=== PATIENT | male | born 1955 | race Caucasian/White ===

== ENCOUNTER 2018-03-08 09:06 | Emergency (ER) | payer OTHER | END 2018-03-08 10:02 | disposition home or self-care (01) | LOC: SCSER 09:06 | DX: S01.511A Laceration without foreign body of lip, initial encounter (principal); W22.8XXA Striking against or struck by other objects, initial encounter | CPT/HCPCS: 12011 ==

== ENCOUNTER 2018-04-24 14:52 | Emergency (ER) | payer OTHER | END 2018-04-24 15:18 | disposition home or self-care (01) | LOC: SCSER 14:52 | DX: L03.113 Cellulitis of right upper limb (principal) | CPT/HCPCS: 99283 ==

== ENCOUNTER 2019-05-07 19:29 | Emergency (ER) | payer OTHER ==
[~2019-05-07 19:29] MED LIST: ISOVUE-370 76%-LOCM 1 ML ONE
[2019-05-07 20:23] LABS: #Basophils 0.1 thou/uL (0.0-0.2); #Eosinphils 0.2 thou/uL (0.0-0.7); #Lymphocytes 1.6 thou/uL (1.20-3.40); #Monocytes 0.9 thou/uL (0.11-0.59); #Neutrophils 5.6 thou/uL (1.40-6.50); %Basophils 1.1 % (0.0-1.0); %Eosinophils 2.9 % (0.0-10.0); %Monocytes 10.4 % (0.0-10.0); %Neutrophils 66.5 % (42.0-75.0); Hemoglobin 13.9 g/dL (14.0-18.0); Mean Corpuscular HGB CONC 32.1 g/dL (32.0-36.0); Mean Corpuscular Hemoglobin 26.7 pg (27.0-31.0); Mean Corpuscular Volume 83.2 fL (78.0-98.0); Mean Platelet Volume 7.3 fL (7.4-10.4); Platelet Count 237 thou/uL (130-400); RBC Distribution Width 12.7 % (11.5-14.5); Red Blood Cell (RBC) Count 5.19 mill/uL (4.70-6.10); White Blood Cell (WBC) Count 8.4 thou/uL (4.8-10.8)
[2019-05-07 20:45] LABS: ALT (SGPT) 14 U/L (8-55); AST (SGOT) 19 U/L (5-34); Alkaline Phosphatase 73 U/L (40-150); Anion Gap 13 mmol/L (10-20); BUN (Urea Nitrogen) 13 mg/dL (8.4-25.7); Bilirubin, Total 0.5 mg/dL (0.2-1.2); Calc. Creatinine Clearance 0 mL/min (70-130); Calcium 9.3 mg/dL (7.8-10.44); Carbon Dioxide 23 mmol/L (23-31); Chloride 105 mmol/L (98-107); Estimated GFR-MDRD 85; Glucose 94 mg/dL (80-115); Potassium 3.9 mmol/L (3.5-5.1); Sodium 137 mmol/L (136-145)
--- NOTE | 2019-05-07 23:12 | CT ---
EXAM: Abdomen and pelvic CT scan with contrast: HISTORY: Pain COMPARISON: None FINDINGS: Scarring and/or volume loss is seen at the lung bases, mild in degree Liver: Unremarkable. Gallbladder: Unremarkable. Pancreas: Unremarkable Spleen: Unremarkable. Adrenal glands: Unremarkable. Kidneys: No renal calculus or acute obstruction. No solid or cystic mass. Bowel: Incompletely evaluated without enteric contrast. Borderline-sized air-filled small bowel is pr esent, within the left abdomen Urinary Bladder: The urinary bladder is unremarkable. Adenopathy: No adenopathy within the abdomen or pelvis. Free Air: No free air. Ascites: No ascites. Osseous structures: No acute osseous abnormalities. IMPRESSION: Borderline-sized loops of small bowel. Bowel is incompletely assessed without enteric contrast. There fore correlation with physical exam is essential to evaluate for HCC such as ileus or low-grade obstruction.
== END 2019-05-07 23:45 | disposition home or self-care (01) ==
LOC: ERS 19:29
DX: R10.9 Unspecified abdominal pain (principal)
CPT/HCPCS: 36415; 74177; 80053; 85025; Q9966

== ENCOUNTER 2020-10-20 16:32 | Emergency (ER) | payer MEDICARE, OTHER ==
--- NOTE | 2020-10-20 17:14 | CT ---
CT ABDOMEN NONCONTRAST CT PELVIS NONCONTRAST: (Urolithiasis protocol) DATE: 10/20/2020 HISTORY: 64-year-old male with left flank pain COMPARISON: 05/07/2019 TECHNIQUE: IV injection of iodinated contrast media: None Oral contrast media: None FINDINGS: Other than for urolithiasis, the lack of IV and oral contrast limits the evaluation. There is high-grade degenerative disc disease at all levels from L1-2 through L5-S1. Lumbar vertebral body heights are maintained. Bilateral L5 pars interarticularis defects causing grade 1 anterolisthesis of L5 on S1. Severe bilateral neural foraminal stenosis at L5-S1, and on the left at L4-5. No pneumoperitoneum, pleural effusion, basilar lower lobe consolidation, small bowel dilation, or col onic diverticulitis. No renal, ureteral, or bladder calculus. No hydronephrosis. Within the limitations of a noncontrast scan, no gross major pathology identified involving kidneys, abdominal aorta, adrenals, pancreas, liver, spleen, or urinary bladder. No major interval change overall. IMPRESSION: 1) no urolithiasis or obstructive uropathy. 2) high-grade lumbar spondylosis with multilevel high-grade degenerative disc disease. 3) grade 1 spondylolisthesis at L5-S1 due to bilateral L5 spondylolysis. Associated severe bilateral neural foraminal stenosis.
[2020-10-20 17:23] LABS: #Basophils 0.1 thou/uL (0.0-0.2); #Eosinphils 0.2 thou/uL (0.0-0.7); #Lymphocytes 1.5 thou/uL (1.20-3.40); #Monocytes 0.8 thou/uL (0.11-0.59); #Neutrophils 5.5 thou/uL (1.40-6.50); %Eosinophils 2.7 % (0.0-10.0); %Lymphocytes 18.6 % (21.0-51.0); %Monocytes 10.1 % (0.0-10.0); %Neutrophils 67.6 % (42.0-75.0); Hemoglobin 13.7 g/dL (14.0-18.0); Mean Corpuscular HGB CONC 33.2 g/dL (32.0-36.0); Mean Corpuscular Hemoglobin 27.4 pg (27.0-31.0); Mean Corpuscular Volume 82.5 fL (78.0-98.0); Mean Platelet Volume 7.7 fL (7.4-10.4); Platelet Count 244 thou/uL (130-400); RBC Distribution Width 12.8 % (11.5-14.5); White Blood Cell (WBC) Count 8.1 thou/uL (4.8-10.8)
[2020-10-20 17:45] LABS: ALT (SGPT) 15 U/L (8-55); AST (SGOT) 21 U/L (5-34); Albumin 3.8 g/dL (3.4-4.8); Alkaline Phosphatase 71 U/L (40-110); Anion Gap 15 mmol/L (10-20); BUN (Urea Nitrogen) 16 mg/dL (8.4-25.7); Bilirubin, Total 0.6 mg/dL (0.2-1.2); Calc. Creatinine Clearance 0 mL/min (70-130); Calcium 8.9 mg/dL (7.8-10.44); Carbon Dioxide 23 mmol/L (23-31); Chloride 103 mmol/L (98-107); Globulin 3.3 g/dL (2.4-3.5); Glucose 100 mg/dL (80-115); Potassium 3.9 mmol/L (3.5-5.1); Protein, Total 7.1 g/dL (5.8-8.1); Sodium 137 mmol/L (136-145)
[2020-10-20 18:39] LABS: Bilirubin Negative (Negative); Blood, Urine Negative (Negative); Clarity Clear (Clear); Glucose, Urine (Dipstick) Normal (Negative); Ketone, Urine Negative (Negative); Leukocyte Negative Leu/uL (Negative); Nitrite Negative (Negative); Protein, Urine (Dipstick) 20 mg/dL (Neg-Trace); Specific Gravity, Urine 1.022 (1.002-1.036); Urobilinogen Normal mg/dL (Less than 2); pH, Urine 5.5 (5.0-9.0)
== END 2020-10-20 19:05 | disposition home or self-care (01) ==
LOC: ERS 16:32
DX: R10.9 Unspecified abdominal pain (principal); Z79.82 Long term (current) use of aspirin
CPT/HCPCS: 74176; 80053; 81003; 85025

== ENCOUNTER 2022-11-20 07:50 | Outpatient (CLI) | payer MEDICARE, OTHER | END 2022-11-20 07:51 | disposition home or self-care (01) | LOC: TBSIIMAG 07:50 | PROVIDERS: ATTEND Physician Assistant Surgical | DX: M51.36 Other intervertebral disc degeneration, lumbar region (principal); M43.16 Spondylolisthesis, lumbar region; M54.50 Low back pain, unspecified | CPT/HCPCS: 72148 ==

== ENCOUNTER 2022-12-20 14:43 | Outpatient (CLI) | payer MEDICARE, OTHER | END 2022-12-20 14:44 | disposition home or self-care (01) | LOC: SCSRAD 14:43 | PROVIDERS: ATTEND Internal Medicine | DX: R05.8 Other specified cough (principal) | CPT/HCPCS: 71046 ==

== ENCOUNTER 2023-01-08 18:31 | Emergency (ER) | payer OTHER, MEDICARE | END 2023-01-08 19:50 | disposition home or self-care (01) | LOC: ERS 18:31 | DX: S90.121A Contusion of right lesser toe(s) without damage to nail, initial encounter (principal); W20.8XXA Other cause of strike by thrown, projected or falling object, initial encounter ==